=== PATIENT | female | born 1980 | race Caucasian/White ===

== ENCOUNTER 2017-10-15 14:28 | Emergency (ER) | payer MEDICAID, OTHER ==
[~2017-10-15] VITALS: Ht 162.6 cm; Wt 74.9 kg
[2017-10-15 14:36] VITALS: Ht 162.6 cm; Wt 74.9 kg
[2017-10-15] MEDS ORDERED: METHYLPREDNISOLONE 125 MG INJ IM ONE (16:30)
[2017-10-15] MEDS ORDERED: DIPHENHYDRAMINE 50 MG CAP PO ONE (16:30)
[2017-10-15] MEDS ORDERED: PRED20TA PO (16:43)
[2017-10-15] MEDS ORDERED: BEN50 PO (16:43)
--- NOTE | 2017-10-15 17:15 | ERD ---
ER Documentation Chief Complaint Chief Complaint RASH TO FACE X 4 DAYS. HPI This is a 37-year-old female presenting to the emergency department with a itchy red rash to her face for the past 4 days. She denies any shortness of breath, fevers. She states that she has not tried any new creams or recent traveling. ROS All systems reviewed and are negative except as per history of present illness. Medications Home Meds Active Scripts Prednisone* (Prednisone*) 20 Mg Tab, 60 MG PO DAILY for 4 Days, TAB Prov:GEOAVNNY MCKEON PA-C 10/15/17 Diphenhydramine Hcl* (Benadryl*) 50 Mg Cap, 50 MG PO Q6H Y for ITCHING/RASH, # 30 CAP Prov:GEOVANNY MCKEON PA-C 10/15/17 PMhx/Soc History of Surgery: No Anesthesia Reaction: No Hx Neurological Disorder: No Hx Respiratory Disorders: No Hx Cardiac Disorders: No Hx Psychiatric Problems: No Hx Miscellaneous Medical Probl: No Hx Alcohol Use: No Hx Substance Use: No Hx Tobacco Use: No Smoking Status: Never smoker Physical Exam Vitals Vital Signs Date Time Temp Pulse Resp B/P Pulse Ox O2 Delivery O2 Flow Rate FiO2 10/15/17 14:36 98.6 82 16 133/85 99 Physical Exam Const: [] Head: Atraumatic Eyes: Normal Conjunctiva ENT: Normal External Ears, Nose and Mouth. Neck: Full range of motion..~ No meningismus. Resp: Clear to auscultation bilaterally Cardio: Regular rate and rhythm, no murmurs Abd: Soft, non tender, non distended. Normal bowel sounds Skin: Erythematous patches throughout face Back: No midline or flank tenderness Ext: No cyanosis, or edema Neur: Awake and alert Psych: Normal Mood and Affect Results 24 hrs Current Medications Medications (Trade) Dose Ordered Sig/Zahira Route PRN Reason Start Time Stop Time Status Last Admin Dose Admin Methylprednisolone Sodium Succinate (Solu-Medrol) 125 mg ONCE ONCE IM 10/15/17 16:30 10/15/17 16:32 DC 10/15/17 16:43 Diphenhydramine HCl (Benadryl) 50 mg ONCE ONCE PO 10/15/17 16:30 10/15/17 16:32 DC 10/15/17 16:43 Procedures/MDM This is a 37-year-old female presenting to the emergency department with a pruritic erythematous patchy rash on her face for the past 4 days, likely allergic reaction or possible autoimmune disorder. Patient appears well, afebrile. No evidence of anaphylaxis or cellulitis. Patient was given Benadryl and Solu-Medrol in the ED with relief in symptoms. A prescription for prednisone and Benadryl was provided. I discussed with her to continue to follow-up with her primary care physician for further evaluation management. Departure Diagnosis: Primary Impression: Rash Condition: Stable Patient Instructions: Dermatitis, Non-Specific Referrals: NO PRIMARY,CARE PHYSICIAN (PCP) [facility]) Usted se titus hecho un examen mdico de control que le indica que no est en varsha condicin que requiera tratamiento urgente en el Departamento de Emergencia. Un estudio ms profundo y el tratamiento de camacho condicin pueden esperar sin ningn riesgo hasta que usted sea atendida/o en el consultorio de camacho mdico o varsha cl neo. Es responsabilidad suya arreglar varsha fausto para el seguimiento del shanna. MANEJO DE CONDICIONES NO URGENTES EN EL FUTURO 1) Si usted tiene un mdico de atencin primaria: Usted debera llamar a camacho mdico de atencin primaria antes de venir al departamento de emergencia. Despus de las horas de consultorio, camacho doctor o camacho asociado/a est disponible por telfono. El mdico o enfermero de ashok en el servicio telefnico puede asesorarle por juan medio para atender el problema, o shanna contrario se puede programar varsha fausto. 2) Si usted no tiene un mdico de atencin primaria: Llame al mdico o clnica de referencia que aparece abajo raza las horas de consultorio para hacer varsha fausto para que le vean. CLINICAS: [facility] [phone] [address] [facility] [place] [phone] [facility] [phone] [place] [phone] [facility] [phone] [facility]. [phone] [address] [facility] () Usted se titus hecho un examen mdico de control que le indica que no est en varsha condicin que requiera tratamiento urgente en el Departamento de Emergencia. Un estudio ms profundo y el tratamiento de camacho condicin pueden esperar sin ningn riesgo hasta que usted sea atendida/o en el consultorio de camacho mdico o varsha cl neo. Es responsabilidad suya arreglar varsha fausto para el seguimiento del shanna. MANEJO DE CONDICIONES NO URGENTES EN EL FUTURO 1) Si usted tiene un mdico de atencin primaria: Usted debera llamar a camacho mdico de atencin primaria antes de venir al departamento de emergencia. Despus de las horas de consultorio, camacho doctor o camacho asociado/a est disponible por telfono. El mdico o enfermero de ashok en el servicio telefnico puede asesorarle por juan medio para atender el problema, o shanna contrario se puede programar varsha fausto. 2) Si usted no tiene un mdico de atencin primaria: Llame al mdico o condado institucions de referencia que aparece abajo raza las horas de consultorio para hacer varsha fausto para que le vean. SI USTED NO PUEDE PAGAR PARA PRISCA UN MEDICO puede ir a: [facility] [address] [place] [address] [facility] [address] [place] [address] [facility] [address] [place] [address] PARA QI [facility] [address] [place], [place] [phone] Additional Instructions: La medicina que se le recet puede causarle sueo.NO DEBE MANEJAR NI OPERAR MAQUINARIAS PELIGROSAS mientras esta tomando esta medicina! Visite a camacho mdico maana para un EXAMEN.Regrese a estas instalaciones si no se mejora vern esperbamos o vern le dijimos. GEOVANNY MCKEON PA-C Oct 15, 2017 17:15
== END 2017-10-15 17:53 | disposition home or self-care (01) ==
LOC: FTE 14:28
DX: R21 Rash and other nonspecific skin eruption (principal)
CPT/HCPCS: 96372; J2930; Z7502; Z7610

== ENCOUNTER 2017-11-12 16:20 | Emergency (ER) | END 2017-11-12 19:38 | disposition home or self-care (01) ==

== ENCOUNTER 2018-08-11 22:12 | Emergency (ER) | END 2018-08-12 00:45 | disposition home or self-care (01) ==